=== PATIENT | male | born 1980 | race Caucasian/White ===

== ENCOUNTER 2019-06-14 09:43 | Outpatient (CLI) | payer OTHER ==
--- NOTE | 2019-06-14 11:47 | RAD ---
CERVICAL SPINE SERIES 3 VIEWS WITH FLEXION AND EXTENSION: Date: 06/14/19 HISTORY: Neck pain. Pinched nerve in C5-6 area. FINDINGS: Vertebral bodies are normal in height. Minimal disc narrowing is seen at the C5-6 level. I do not see any significant abnormal motion with flexion. In extension, there is very minimal retrolisthesis of C5 upon C6. IMPRESSION: Mild arthritic changes at the C5-6 level. POS: [facility]
== END 2019-06-14 09:44 | disposition home or self-care (01) ==
LOC: TBSIIMAG 09:43
PROVIDERS: ATTEND Neurological Surgery
DX: M54.12 Radiculopathy, cervical region (principal); M46.92 Unspecified inflammatory spondylopathy, cervical region
CPT/HCPCS: 72040